=== PATIENT | female | born 2000 ===

== ENCOUNTER 2021-10-22 07:51 | Inpatient (IN) ==
[2021-10-22] MEDS ORDERED: Famotidine 20 MG/2 ML VIAL IVP ONE (08:42)
[2021-10-22] MEDS ORDERED: CeFAZolin 2,000 MG/120 ML BAG IVPB ONE (08:42)
[2021-10-22] MEDS ORDERED: Ringers Solution, Lactated 1,000 ML IVC ONE (08:42)
[2021-10-22] MEDS ORDERED: Metoclopramide 10 MG/2 ML VIAL IVP ONE (08:42)
[2021-10-22] MEDS ORDERED: Oxytocin 30 UNIT/503 ML BAG IVC SCH ×2 (08:45→14:15)
[2021-10-22 09:00] LABS: Basophils # 0.1 K/mcL (0.0-0.2); Basophils % 1.1 %; Eosinophils # 0.1 K/mcL (0.0-0.6); Eosinophils % 0.8 %; Hematocrit 42.8 % (35.3-44.9); Hemoglobin 14.3 g/dL (11.5-15.4); Immature Granulocytes % 2.6 % (0-4); Lymphocytes # 2.1 K/mcL (0.6-4.6); Mean Corpuscular HGB Conc 33.4 g/dL (31.6-35.5); Mean Corpuscular Hemoglobin 29.1 pg (28.0-33.3); Mean Platelet Volume 9.6 fL (9.4-12.4); Monocytes # 0.8 K/mcL (0.0-1.3); Monocytes % 6.9 %; Neutrophils # 7.7 K/mcL (1.6-8.9); Platelet Count 247 K/mcL (140-400); Red Blood Count 4.92 M/mcL (3.82-4.97); Red Cell Distribution Width 13.8 % (11.5-14.5); Segmented Neutrophils % 69.6 %; White Blood Count 11.1 K/mcL (4.3-11.1)
[2021-10-22] MEDS ORDERED: miSOPROStoL 25 MCG TABLET PO PRN (09:02)
[2021-10-22] MEDS ORDERED: Penicillin G Potassium 5,000,000 UNIT in 0.9 % Sodium Chloride Mini Bag 100 ML IVPB ONE (09:02)
[2021-10-22] MEDS ORDERED: Naloxone 0.4 MG/ML INJ IVP PRN (09:04)
[2021-10-22] MEDS ORDERED: Famotidine 20 MG/2 ML VIAL IVP PRN (09:04)
[2021-10-22] MEDS ORDERED: *HR* Nalbuphine 10 MG/ML AMPUL IV PRN (09:04)
[2021-10-22] MEDS ORDERED: Azithromycin 500 MG in 0.9 % Sodium Chloride 250 ML IVPB PRN (09:04)
[2021-10-22] MEDS ORDERED: Ondansetron 4 MG/2 ML VIAL IVP PRN (09:04)
[2021-10-22] MEDS ORDERED: Metoclopramide 10 MG/2 ML VIAL IVP PRN (09:04)
[2021-10-22 09:33] LABS: Amphetamine Screen,Urine Negative ng/mL (Cutoff=1000); Barbiturate Screen,Urine Negative ng/mL (Cutoff=200); Benzodiazepines Screen,Urine Negative ng/mL (Cutoff=200); Cannabinoid Screen,Urine Negative ng/mL (Cutoff = 50); Cocaine Screen,Urine Negative ng/mL (Cutoff= 300); Opiate Screen,Urine Negative ng/mL (Cutoff=300); Phencyclidine Screen,Urine Negative ng/mL (Cutoff=25)
[2021-10-22 09:44] LABS: Influenza A PCR Negative (Negative); Influenza B PCR Negative (Negative); Resp. Syncytial Virus PCR Negative (Negative); SARS-CoV-2 by PCR (In House) Negative (Negative)
[2021-10-22] MEDS: Ringers Solution, Lactated 1,000 ML IVC SCH ×3 (09:53→22:48)
[2021-10-22] MEDS: Penicillin G Potassium 2,500,000 UNIT/105 ML MLS IVPB SCH ×4 (13:39→21:16)
[2021-10-22] MEDS ORDERED: Ropivacaine/PF 0.2% 20 ML VIAL EP ONE (20:16)
[2021-10-22] MEDS ORDERED: EPHEDrine 50 MG/ML VIAL IVP PRN (20:16)
[2021-10-22] MEDS ORDERED: *HR* FentaNYL (PF) 100 MCG/2 ML VIAL EP ONE (20:16)
[2021-10-22] MEDS ORDERED: Epidural Premix (fent/bupiv) 110 ML EP SCH (20:30)
[2021-10-22] MEDS ORDERED: Ropivacaine/PF 0.2% 20 ML VIAL ONE (23:09)
[2021-10-22] MEDS ORDERED: *HR* FentaNYL (PF) 100 MCG/2 ML VIAL ONE (23:09)
[2021-10-23] MEDS: Penicillin G Potassium 2,500,000 UNIT/105 ML MLS IVPB SCH (01:15)
[2021-10-23] MEDS: Ringers Solution, Lactated 1,000 ML IVC SCH (01:51)
[2021-10-23] MEDS ORDERED: Oxytocin 30 UNIT/503 ML BAG IVC SCH (07:32)
[2021-10-23] MEDS ORDERED: Benzocaine/Menthol 56 GM AEROSOL SPRAY TP PRN (07:32)
[2021-10-23] MEDS ORDERED: Lanolin 7 G OINT...G. TP PRN (07:32)
[2021-10-23] MEDS ORDERED: Ondansetron ODT 4 MG TAB.RAPDIS SL PRN (07:32)
[2021-10-23] MEDS ORDERED: OXYTOCIN/RINGERS LACTATE 10 UNIT/166.6 ML BAG IVC ONE (07:32)
[2021-10-23] MEDS: Ibuprofen 600 MG TABLET PO SCH ×2 (08:42→20:53)
[2021-10-23] MEDS: Prenatal Vit/FA 1 EACH TABLET PO SCH (08:44)
[2021-10-23] MEDS: Acetaminophen 325 MG TABLET PO SCH (20:53)
[2021-10-24] MEDS: Acetaminophen 325 MG TABLET PO SCH ×2 (04:25→12:25)
[2021-10-24] MEDS: Ibuprofen 600 MG TABLET PO SCH ×3 (04:25→14:21)
[2021-10-24 04:35] VITALS: O2SAT 97
[2021-10-24 07:14] VITALS: BP 99/65; PULSE 69; TEMP 97.6
[2021-10-24] MEDS: Prenatal Vit/FA 1 EACH TABLET PO SCH (09:05)
== END 2021-10-24 15:00 | disposition home or self-care (01) | DRG 807 ==
LOC: 1NENULAB 07:51 → 1NENUOBS 10-23 07:28
PROVIDERS: ADMIT Registered Nurse; ATTEND Registered Nurse